=== PATIENT | male | born 1975 | race Caucasian/White ===

== ENCOUNTER 2018-04-01 17:29 | Emergency (ER) | payer OTHER ==
[2018-04-01 17:47] VITALS: BP 132/88
--- NOTE | 2018-04-01 17:55 | UC ---
Cardiac HPI - HPI Summary HPI Summary: 42 yo male presents with headache, spontaneous epistaxis, and elevated BP. He tells me that yesterday he had some tinges of blood when blowing his nose. Today he was hunting and felt it was difficult to concentrate. He had a spontaneous nosebleed that lasted about 20minutes and stopped with direct pressure. Throughout this time he also has a headache and pain behind his left eye. He had another nosebleed later today that lasted 30minutes. He called his PCP to get an appointment and they asked him to check his BP with his at home machine, which he did and found it to be 211/145. His PCP's office recommended her be evaluated today, prompting his visit to the . Currently he still has a mild headache and moderate pain behind his left eye. Denies fever, recent illness, dizziness, vision changes, SOB, chest pain, n/v. - History of Current Complaint Chief Complaint: UCGeneralIllness Stated Complaint: BLOODY NOSE, AND PAIN AROUND EYES Time Seen by Provider: 04/01/18 17:43 Hx Obtained From: Patient Onset/Duration: Sudden Onset Initial Severity: Mild Current Severity: Mild Pain Intensity: 3 - Allergy/Home Medications Allergies/Adverse Reactions: Allergies Allergy/AdvReac Type Severity Reaction Status Date / Time hydroxyzine [From Vistaril] Allergy Anaphylatic Verified 04/01/18 17:43 Shock Home Medications: Home Medications Aspirin/Acetaminophen/Caffeine [Excedrin Migraine Caplet] 1 each PO Q12HR [History Confirmed 04/01/18] Garlic [Garlic Oil] 3,000 mg PO BID 04/01/18 [History Confirmed 04/01/18] [place]-3 Fatty Acids/Fish Oil [Fish Oil 1,000 mg Capsule] 6 each PO DAILY [History Confirmed 04/01/18] PMH/Surg Hx/FS Hx/Imm Hx Endocrine History: Diabetes, Dyslipidemia Cardiovascular History: Hypertension - Surgical History Surgical History: Yes Surgery Procedure, Year, and Place: appendectomy. BULLET REMOVED FROM HAND. L 1/2 testicle removed. vasectomy - Family History Known Family History: Positive: Cardiac Disease - FATHER, MOTHER - Social History Occupation: Employed Full-time Lives: With Family Alcohol Use: None Substance Use Type: Marijuana Substance Use Comment - Amount & Last Used: daily Smoking Status (MU): Light Every Day Tobacco Smoker Type: Cigarettes When Did the Patient Quit Smoking/Using Tobacco: november 2014 Household Exposure Type: Cigarettes Review of Systems All Other Systems Reviewed And Are Negative: Yes Constitutional: Positive: Negative Skin: Positive: Negative Eyes: Positive: Other - Left eye pain ENT: Positive: Epistaxis Respiratory: Positive: Negative Cardiovascular: Positive: Negative Gastrointestinal: Positive: Negative Neurovascular: Positive: Negative Musculoskeletal: Positive: Negative Neurological: Positive: Headache Psychological: Positive: Negative Physical Exam - Summary Physical Exam Summary: GENERAL: NAD. WDWN. No pain distress. SKIN: No rashes, sores, lesions, or open wounds. HEENT: Head: AT/NC Eyes: EOM intact. PERRLA. No nystagmus. Conjunctiva clear without inflammation or discharge. LEFT eye moderate tenderness to light palpation. Ears: Hearing grossly normal. TMs intact, no bulging, erythema, or edema. Nose: Nasal mucosa with dried blood right>left. NTTP maxillary and frontal sinus. Throat: Posterior oropharynx without exudates, erythema, or tonsillar enlargement. Uvula midline. NECK: Supple. Nontender. No lymphadenopathy. CHEST: CTAB. No r/r/w. No accessory muscle use. Breathing comfortably and in no distress. CV: RRR. Without m/r/g. Pulses intact. Cap refill <2seconds NEURO: A&Ox3. 3 word recall, remote, recent memory, ability to follow 2-step directions, and attention intact. CN: II: Peripheral mart intact. Vision normal. III, IV, : EOMI. No nystagmus. PERRLA. V: Sensations intact and symmetric. Opens mouth and clenches teeth. VII: No facial asymmetry. Forehead wrinkles. Grins, shuts eyes, frowns, puffs cheeks. VIII: Hearing intact to finger rub. IX, X: Swallows and coughs. Uvula midline. XI: Shrugs shoulders. Turns head against resistance. XII: No tongue deviation [id number] are intact. Gait with normal base. Normal speech. No facial drooping. PSYCH: Age appropriate behavior. Triage Information Reviewed: Yes Vital Signs: Initial Vital Signs Temp 98.6 F 04/01/18 17:34 Pulse 79 04/01/18 17:34 Resp 18 04/01/18 17:34 BP 132/88 04/01/18 17:34 Pulse Ox 99 04/01/18 17:34 Vital Signs Reviewed: Yes - Assessment/Plan Course Of Treatment: EKbpm NSR with No ST changes as read by Dr. Mclean. Discussed case with Dr. Mclean, whom also interviewed the pt. His vitals are stable currently and his BP is acceptable, but given his elevated BP earlier today and symptoms - advised pt to be further evaluated in the ED. He was agreeable to this and will go be ambulance transfer. Pt left in stable condition via bangs. Report called to Dr. Olmos in the ED. - Clinical Impression Provider Diagnosis: Elevated blood pressure reading, Headache, Eye pain, Epistaxis Discharge - Sign-Out/Discharge Documenting (check all that apply): Patient Departure All imaging exams completed and their final reports reviewed: No Studies - Discharge Plan Condition: Stable Disposition: TRANS HIGHER LVL OF CARE FAC Referrals: Al NETTLES,Laz Gregory [Primary Care Provider] - - Billing Disposition and Condition Condition: STABLE Disposition: Trans Higher Lvl of Care Fac
--- NOTE | 2018-04-01 20:37 | UC ---
- Progress Note Progress Note: I saw the patient along with physician service assistant in the clinic today. After the patient left the emergency department he called me saying he was still having pain. We discussed his pain and he believes it's a sinus infection. I further discussed treatment with antibiotics and he agreed I'm calling in an antibiotic to his pharmacy. Course/Dx - Diagnoses Provider Diagnoses: Elevated blood pressure reading, Headache, Eye pain, Epistaxis Discharge - Sign-Out/Discharge Documenting (check all that apply): Patient Departure All imaging exams completed and their final reports reviewed: No Studies - Discharge Plan Condition: Stable Disposition: TRANS HIGHER LVL OF CARE FAC Prescriptions: Amoxicillin/Clavulanate TAB* [Augmentin TAB 875*] 875 mg PO BID #20 tab Referrals: Al NETTLES,Laz Gregory [Primary Care Provider] - - Billing Disposition and Condition Condition: STABLE Disposition: Trans Higher Lvl of Care Fac
== END 2018-04-01 19:25 | disposition short-term general hospital (02) ==
LOC: UCEAST 17:29
DX: R03.0 Elevated blood-pressure reading, without diagnosis of hypertension (principal); R51 Headache; Z88.8 Allergy status to other drugs, medicaments and biological substances; F17.210 Nicotine dependence, cigarettes, uncomplicated
CPT/HCPCS: 99213; G0463

== ENCOUNTER → 2018-04-01 19:03 | Emergency (ER) | payer OTHER ==
[2018-04-01 19:10] VITALS: BP 154/94
--- NOTE | 2018-04-01 20:03 | ED ---
Throat Pain/Nasal Congestion - HPI Summary HPI Summary: This patient is a 42 year old M brought in by ambulance to [facility] with a chief complaint of nasal pressure that began prior to arrival. The patient rates the pain 10/10 in severity. Symptoms aggravated by nothing. Symptoms alleviated by nothing. Patient reports headache (behind left eye), LUE pain radiating to chest , and epistaxis. Patient states he had a blockage in his heart, and refused treatment for this condition. - History of Current Complaint Chief Complaint: EDGeneral Time Seen by Provider: 04/01/18 19:50 Hx Obtained From: Patient Onset/Duration: Sudden Onset, Lasting Hours, Still Present Severity: Severe Cough: None - Allergies/Home Medications Allergies/Adverse Reactions: Allergies Allergy/AdvReac Type Severity Reaction Status Date / Time hydroxyzine [From Vistaril] Allergy Anaphylatic Verified 04/01/18 17:43 Shock PMH/Surg Hx/FS Hx/Imm Hx Previously Healthy: No Endocrine/Hematology History: Reports: Hx Diabetes - controlled by diet Denies: Hx Thyroid Disease Cardiovascular History: Denies: Hx Hypertension Respiratory History: Reports: Hx Chronic Obstructive Pulmonary Disease (COPD) Denies: Hx Asthma GI History: Reports: Hx Ulcer - Surgical History Surgery Procedure, Year, and Place: appendectomy. BULLET REMOVED FROM HAND. L 1/2 testicle removed. vasectomy Infectious Disease History: No Infectious Disease History: Denies: Hx Clostridium Difficile, Hx Hepatitis, Hx Human Immunodeficiency Virus (HIV), Hx of Known/Suspected MRSA, Hx Shingles, Hx Tuberculosis, Hx Known/ Suspected VRE, Hx Known/Suspected VRSA, History Other Infectious Disease, Traveled Outside the [place] in Last 30 Days - Family History Known Family History: Positive: Cardiac Disease - FATHER, MOTHER - Social History Occupation: Employed Full-time Lives: With Family Alcohol Use: Daily Hx Substance Use: Yes Substance Use Type: Reports: Marijuana Substance Use Comment - Amount & Last Used: daily Hx Tobacco Use: Yes Smoking Status (MU): Light Every Day Tobacco Smoker Review of Systems ENT: Other - Positive sinus pressure Positive: Epistaxis Positive: Other - Positive RUE pain radiating to chest Positive: Headache All Other Systems Reviewed And Are Negative: Yes Physical Exam - Summary Physical Exam Summary: VITAL SIGNS: Reviewed. GENERAL: Patient is a well-developed and nourished male who is lying comfortable in the stretcher. Patient is not in any acute respiratory distress. Pt was uncooperative during exam. I examined him as much as I could. HEAD AND FACE: No signs of trauma. No ecchymosis, hematomas or skull depressions. EYES: PERRLA, EOMI x 2, No injected conjunctiva, no nystagmus. EARS: Hearing grossly intact. MOUTH: Oropharynx within normal limits. NECK: Supple, trachea is midline, no adenopathy, no JVD, neck with full ROM. CHEST: Symmetric, no tenderness at palpation LUNGS: Clear to auscultation bilaterally. No wheezing or crackles. CVS: Regular rate and rhythm, S1 and S2 present, no murmurs or gallops appreciated. ABDOMEN: Soft, non-tender. No signs of distention. No rebound no guarding, and no masses palpated. Bowel sounds are normal. EXTREMITIES: FROM in all major joints, no edema, no cyanosis or clubbing. NEURO: Alert and oriented x 3. No acute neurological deficits. Speech is normal and follows commands. SKIN: Dry and warm Triage Information Reviewed: Yes Vital Signs On Initial Exam: Initial Vitals Temp Pulse Resp BP Pulse Ox 98.2 F 81 18 154/94 96 04/01/18 19:08 04/01/18 19:08 04/01/18 19:08 04/01/18 19:08 04/01/18 19:08 Vital Signs Reviewed: Yes Diagnostics - Vital Signs Vital Signs Temp Pulse Resp BP Pulse Ox 04/01/18 19:08 98.2 F 81 18 154/94 96 - Laboratory Lab Statement: Any lab studies that have been ordered have been reviewed, and results considered in the medical decision making process. - EKG 1931 Cardiac Rate: NL EKG Rhythm: Sinus Rhythm - [address] Segment: Normal Summary of EKG Findings: An EKG taken at 1931 reveals nml sinus rhythm at 73 BPM with left axis deviation and no acute ST changes. EENT Course/Dx - Course Course Of Treatment: This patient is a 42 year old M brought in by ambulance to [facility] with a chief complaint of nasal pressure that began prior to arrival. Physical Exam Findings: Pt was uncooperative during exam. I examined him as much as I could. An EKG taken at 1931 reveals nml sinus rhythm at 73 BPM with left axis deviation and no acute ST changes. Patient eloped. - Diagnoses Provider Diagnoses: Eloped from emergency department Discharge - Sign-Out/Discharge Documenting (check all that apply): Patient Departure - Eloped - Discharge Plan Condition: Stable Disposition: ELOPEMENT Referrals: Al NETTLES,Laz Gregory [Primary Care Provider] - - Attestation Statements Document Initiated by Scribe: Yes Documenting Scribe: Lisbeth Pariis Provider For Whom Scribe is Documenting (Include Credential): Dr. Aryan Amaya MD Scribe Attestation: I, Lisbeth Parisi, scribed for Dr. Aryan Amaya MD on 04/01/18 at 2002. Status of Scribe Document: Ready
== END | disposition left against medical advice (07) ==
LOC: ED 19:03
DX: J34.89 Other specified disorders of nose and nasal sinuses (principal); R07.89 Other chest pain; R51 Headache; Z88.8 Allergy status to other drugs, medicaments and biological substances; F17.200 Nicotine dependence, unspecified, uncomplicated
CPT/HCPCS: 93005; 99282

== ENCOUNTER 2018-10-18 11:35 | Emergency (ER) | payer OTHER ==
[2018-10-18 11:52] VITALS: BP 123/79
--- NOTE | 2018-10-18 12:08 | UC ---
Respiratory Complaint HPI - HPI Summary HPI Summary: 43 y/o male PMHx of COPD presents to the urgent care c/o sinus pressure, nasal congestion for the past 2 week. Symptoms have worsen the past week w/ productive cough, chest congestion. For the past 3 days w/ wheezing, using the neb Tx and Symbicort inhaler w/o any improvement. Pt states chills last night, but no fever. Sinus pain is 4/10. He denies SOB, difficulty breathing, chest pain, CHILEL, abdominal pain, N/V/D. - History of Current Complaint Chief Complaint: UCRespiratory Stated Complaint: SINUS/CHECT CONGESTION Time Seen by Provider: 10/18/18 12:06 Hx Obtained From: Patient Onset/Duration: Gradual Onset, Lasting Weeks - 2 weeks w/ productive cough and yellowish phlegm, Still Present, Worse Since - 3 days w/ wheezing Timing: Intermittent Episodes Severity Initially: Mild Severity Currently: Moderate Pain Intensity: 4 - sinus pain Pain Scale Used: 0-10 Numeric Character: Cough: Productive, Sputum Description: - yellowish Aggravating Factors: Recumbent Position Alleviating Factors: Bronchodilator, OTC Meds Associated Signs And Symptoms: Positive: Chills, Wheezing - x 3 days, URI, Nasal Congestion, Sinus Discomfort. Negative: Dyspnea, Fever, Hemoptysis Related History: Similar Episode/Dx as: - COPD exacerbation - Risk Factors Pulmonary Embolism Risk Factors: Negative Cardiac Risk Factors: Hypertension - diet controlled, Smoking Pseudomonas Risk Factors: Negative Tuberculosis Risk Factors: Negative - Allergies/Home Medications Allergies/Adverse Reactions: Allergies Allergy/AdvReac Type Severity Reaction Status Date / Time hydroxyzine [From Vistaril] Allergy Anaphylatic Verified 10/18/18 11:55 Shock Home Medications: Home Medications Albuterol/Ipratropium NEB.AGUSTIN* [Duoneb (Albuterol 2.5 MG/Ipratropium 0.5 MG)] 1 neb INH Q4H PRN 10/18/18 [History Confirmed 10/18/18] Budesonide/Formote 80/4.5(NF) [Symbicort 80/4.5 (NF)] 1 puff INH BID 10/18/18 [ History Confirmed 10/18/18] PMH/Surg Hx/FS Hx/Imm Hx Previously Healthy: Yes Cardiovascular History: Hypertension Respiratory History: COPD - Surgical History Surgical History: None Surgery Procedure, Year, and Place: appendectomy. BULLET REMOVED FROM HAND. L 1/2 testicle removed. vasectomy - Family History Known Family History: Positive: Cardiac Disease - FATHER, MOTHER, Hypertension, Diabetes - Social History Occupation: Employed Full-time Lives: With Family Alcohol Use: None Substance Use Type: Marijuana Substance Use Comment - Amount & Last Used: daily Smoking Status (MU): Light Every Day Tobacco Smoker When Did the Patient Quit Smoking/Using Tobacco: november 2014 Household Exposure Type: Cigarettes Review of Systems All Other Systems Reviewed And Are Negative: Yes Constitutional: Positive: Chills Skin: Positive: Negative Eyes: Positive: Negative ENT: Positive: Ear Ache - B/L ear pressure, Nasal Discharge - yellowish, Sinus Congestion, Sinus Pain/Tenderness, Other - PND Respiratory: Positive: Cough - productive, Other - wheezing Cardiovascular: Positive: Negative Gastrointestinal: Positive: Negative Genitourinary: Positive: Negative Motor: Positive: Negative Neurovascular: Positive: Negative Musculoskeletal: Positive: Negative Neurological: Positive: Negative Psychological: Positive: Negative Is Patient Immunocompromised?: No Physical Exam - Summary Physical Exam Summary: Vital Signs Reviewed: Yes General: well developed, well nourished male sitting in the examining table w/o any apparent distress Eyes: Positive: Conjunctiva Clear - PERRLA, EOMI, fundi grossly normal ENT: Positive: Normal ENT inspection, Hearing grossly normal, Pharynx normal, Nasal congestion - edematous and erythematous nasal mucosa, Nasal drainage - yellowish drainage, TMs normal. Negative: Tonsillar swelling, Tonsillar exudate Neck: Positive: Supple, Nontender, No Lymphadenopathy Respiratory: no orthopnea or dyspnea. Able to speak in full sentences, no retractions or accessory muscle use, no tripod position, stridor, or head bobbing. Positive breath sounds bilaterally. diffuse scattered wheezing and rhonchi on b/L lungs, no crackles or rales. Cardiovascular: Positive: RRR, No Murmur, Pulses Normal, Brisk Capillary Refill Abdomen Description: Positive: Nontender, No Organomegaly, Soft. Negative: CVA Tenderness (R), CVA Tenderness (L) Bowel Sounds: Positive: Present Musculoskeletal Exam: Normal Musculoskeletal: Positive: Strength Intact, ROM Intact, No Edema Neurological Exam: Normal Psychological Exam: Normal Skin Exam: Normal Triage Information Reviewed: Yes Vital Signs: Initial Vital Signs Temp 98.9 F 06/24/19 11:48 Pulse 96 10/18/18 11:48 Resp 18 10/18/18 11:48 BP 123/79 10/18/18 11:48 Pulse Ox 97 10/18/18 11:48 Respiratory Course/Dx - Course Course Of Treatment: 43 y/o male PMHx of COPD presents to the urgent care c/o sinus pressure, nasal congestion for the past 2 week. Symptoms have worsen the past week w/ productive cough, chest congestion. For the past 3 days w/ wheezing, using the neb Tx and Symbicort inhaler w/o any improvement. Pt states chills last night, but no fever. Sinus pain is 4/10. He denies SOB, difficulty breathing, chest pain, CHILEL, abdominal pain, N/V/D. Hx obtained. Pt is hemodynamically stable, A& OX3, Pt w/ B/L lungs scattered wheezing and rhonchi on examination. O2Sat:97%. Pt w/ PMHX of COPD and everyday smoker. Pt probably w/ a COPD exacerbation due to bronchitis on examination. Chest X-ray ordered: impression: no acute disease observed. Pt given at the clinic Prednisone 60 mg PO and Duoneb treatment. Pt tolerated well medications and her lungs improved. Pt states feeling better. Pt will be tx w/ Rx Doxycycline PO , Prednisone taper dose and advised to continue w/ Neb Tx. Strongly advised to f/u with PCP in 3 days for further management if not improvement. Pt understood and agreed with D/C instructions and left the clinic hemodynamically stable. - Differential Dx/Diagnosis Differential Diagnosis/HQI/PQRI: Asthma, Bronchitis, Exacerbation Of COPD, Influenza, Lower Resp Infection, Sinusitis, Other - pneumonia Provider Diagnosis: COPD with exacerbation, Wheezing Discharge - Sign-Out/Discharge Documenting (check all that apply): Patient Departure - D/C home All imaging exams completed and their final reports reviewed: Yes - Discharge Plan Condition: Stable Disposition: HOME Prescriptions: DOXYcycline CAP(*) [DOXYcycline 100MG CAP(*)] 100 mg PO BID #20 cap predniSONE TAB* [Deltasone 20 MG TAB*] 20 mg PO DAILY #8 tab Patient Education Materials: COPD (Chronic Obstructive Pulmonary Disease) (ED) Referrals: [facility] [Outside] - 3 Days Additional Instructions: 1- Take Prednisone PO taper dose as directed starting tomorrow. First loading dose given today. 2-TAke Doxycycline PO as directed. Please take full course of antibiotic. Take yogurts w/ probiotics or Culturelle to protect your GI ankita 2- Continue using your Duoneb nebulizer treatment to alleviate SOB, and wheezing as directed . Increase fluid intake, rest and eat well. 3- If symptoms do not improve or worsen or your develop SOB with fever and severe wheezing please go immediately to the ER further evaluation and treatment. 4- F/u with your PCP in 3 days for further management on your COPD if not improvement of symptoms. - Billing Disposition and Condition Condition: STABLE Disposition: Home
[2018-10-18] MEDS ORDERED: Albuterol/Ipratropium NEB.SOL* Albuterol 2.5 MG/Ipratropium 0.5 MG 3 ML INH ONE (12:25)
[2018-10-18] MEDS ORDERED: predniSONE TAB* 20 MG PO ONE (12:25)
== END 2018-10-18 13:07 | disposition home or self-care (01) ==
LOC: UCEAST 11:35
DX: J44.1 Chronic obstructive pulmonary disease with (acute) exacerbation (principal); R06.2 Wheezing; I10 Essential (primary) hypertension; F17.210 Nicotine dependence, cigarettes, uncomplicated
CPT/HCPCS: 71046; 99202; A9270-GY; G0463; J7512

== ENCOUNTER 2019-07-30 12:11 | Emergency (ER) | payer OTHER ==
--- NOTE | 2019-07-30 13:02 | UC ---
General HPI - HPI Summary HPI Summary: 44 yo gentleman c/o progressive cough, wheezing / sob x approx 1 1/2 week. + discomfort in L ant chest x 1 and 1/2 weeks. Mr. Holliday reports that this pain also happens in this location when he gets a bad bronchitis or pneumonia. Denies palpitations. Discomfort is constant, not pleuritic. Reports that this is not unusual, and usually resolves with mucinex and vicks after appr 5 dyas. But this is not better, and getting worse. Temp increase 99.5F 6 days ago, but doesn't think since then. scratchy throat. + sinus congestion from cough. He is coughing up thick, dark sputum. Does not think it's bloody. No rash. Some loose stool, but no change from baseline. No melena / brbpr. No urinary c/o's. No extremity swelling / pain. Completed a full course of doxycycline (May 2019) d/t similar sx. - History of Current Complaint Chief Complaint: UCRespiratory Stated Complaint: SHORTNESS OF BREATH,CHEST CONGESTION Time Seen by Provider: 07/30/19 12:23 Hx Obtained From: Patient Pain Intensity: 0 - Allergy/Home Medications Allergies/Adverse Reactions: Allergies Allergy/AdvReac Type Severity Reaction Status Date / Time hydroxyzine [From Vistaril] Allergy Anaphylatic Verified 07/30/19 12:17 Shock Home Medications: Home Medications Garlic [Garlic Oil] 6,000 mg PO BID 04/01/18 [History Confirmed 10/18/18] Albuterol HFA INHALER* [Ventolin HFA Inhaler*] 1 puff INH Q4H PRN 07/30/19 [ History Confirmed 07/30/19] Albuterol HFA INHALER* [Ventolin HFA Inhaler*] 2 puff INH Q4H PRN #1 mdi [Rx] Ciprofloxacin TAB* [Cipro 500 MG TAB*] 500 mg PO BID #20 tab 07/30/19 [Rx] D-Methorphan/PE/Acetaminophen [Day Time Cold-Flu Liquid] 237 ml PO ONCE [History Confirmed 07/30/19] Krill/Om3/Dha/Epa/Om6/Lip/Astx [Krill Oil 1,000 mg Softgel] 2,000 mg PO BID 08/14 [History Confirmed 07/30/19] guaiFENesin [Mucinex] 600 mg PO ONCE 07/30/19 [History Confirmed 07/30/19] predniSONE 10 mg TAB [Deltasone 10 MG TAB*] 10 mg PO DAILY #22 tab 07/30/19 [Rx] PMH/Surg Hx/FS Hx/Imm Hx Previously Healthy: No - see hpi and below - Surgical History Surgical History: Yes Surgery Procedure, Year, and Place: appendectomy. BULLET REMOVED FROM HAND. L 1/2 testicle removed. vasectomy - Family History Known Family History: Positive: Cardiac Disease - FATHER, MOTHER, Hypertension, Diabetes - Social History Alcohol Use: None Substance Use Type: Marijuana Substance Use Comment - Amount & Last Used: medical, daily Smoking Status (MU): Light Every Day Tobacco Smoker Amount Used/How Often: 1.5 PPD Length of Time of Smoking/Using Tobacco: has smoked since childhood When Did the Patient Quit Smoking/Using Tobacco: 2020 Household Exposure Type: Cigarettes Review of Systems All Other Systems Reviewed And Are Negative: Yes Constitutional: Positive: Other - see hpi Skin: Positive: Negative Eyes: Positive: Negative ENT: Positive: Other - see hpi Respiratory: Positive: Cough Cardiovascular: Positive: Other - see hpi Gastrointestinal: Positive: Other - see hpi Genitourinary: Positive: Other - see hpi Motor: Positive: Other - see hpi Neurovascular: Positive: Other - see hpi Musculoskeletal: Positive: Other: - see hpi Neurological/Mental Status: Positive: Negative Psychological: Positive: Negative Is Patient Immunocompromised?: No Physical Exam Triage Information Reviewed: Yes Appearance: Well-Appearing - sitting up, conversing easily, appropriately, in full sentances, Well-Nourished Vital Signs Reviewed: Yes Eye Exam: Normal ENT Exam: Normal - grossly normal, no ear pain c/o Neck exam: Normal Respiratory Exam: Other - + scattered rhonchi all upper and lower chest. + scattered wheeze diffuse. No rtx. No distress. Cardiovascular Exam: Normal Cardiovascular: Positive: RRR, Pulses Normal, Brisk Capillary Refill Musculoskeletal Exam: Normal Musculoskeletal: Positive: Strength Intact, ROM Intact, Other: - no focal unilateral edema Neurological Exam: Normal - grossly nad Psychological Exam: Normal - nad Skin Exam: Normal - no visible or reported rash nondiaphoretic Course/Dx - Course Course Of Treatment: Mr. Holliday carefully considered EKG. But absolutely declines, citing it's always bad and if it's a heart attack, then he's been having a heart attack for over a week. He is aware that undiagnosed cardiac could -> disability or even sudden . He is ok with a CXR, hx pneumonia last year. CXR - see [employer] report for details - Bronchitis and / or inflammatory lung disease D/t lung findings / hx of repeated pneumonia / chronic smoking hx, clinical suspicion is elevated for pneumatic process. As such will rx accordingly. Also will start prednisone (d/w pt, including re covid precautions, but he is having sign wheezing along with hx tobacco, as such, prednisone is indicated). Does not have a nebulizer (used to have one). Will purchase another nebulizer online. He does have nebulizer medication, declines rx for neb albuterol. He would like rx for albuterol inhaler. Aware of the need to self quarantine. He reports that he has been self isolating since July 03. Aware to seek medical attention immediately if worse or new problems. Questions as posed answered to the best of my ability. Influenza a/b negative COVID 19 sent - Diagnoses Provider Diagnosis: Bronchospasm, Bronchitis Discharge ED - Sign-Out/Discharge Documenting (check all that apply): Patient Departure All imaging exams completed and their final reports reviewed: Yes - Discharge Plan Condition: Stable Disposition: HOME Prescriptions: Albuterol HFA INHALER* [Ventolin HFA Inhaler*] 2 puff INH Q4H PRN #1 mdi PRN Reason: Wheezing predniSONE 10 mg TAB [Deltasone 10 MG TAB*] 10 mg PO DAILY #22 tab Patient Education Materials: Acute Bronchitis (ED), Bronchospasm (ED) Referrals: [facility] [Outside] No Primary Care Phys,NOPCP [Primary Care Provider] - Additional Instructions: Blood pressure 139/83. Recommend that this be rechecked if possible within 4 weeks. Please follow up with a primary care physician, when possible. Seek immediate medical attention for worse or new problems. Hydrate. You are being tested for COVID 19, please refer to self quarantine precautions. Please strongly consider tobacco cessation. - Billing Disposition and Condition Condition: STABLE Disposition: Home
[2019-07-30 13:13] VITALS: BP 139/83
[2019-07-30 13:24] LABS: Influenza A Molecular Negative (Negative); Influenza B Molecular Negative (Negative)
== END 2019-07-30 13:52 | disposition home or self-care (01) ==
LOC: UCEAST 12:11
DX: J20.9 Acute bronchitis, unspecified (principal); Z20.828 Contact with and (suspected) exposure to other viral communicable diseases; Z88.8 Allergy status to other drugs, medicaments and biological substances; F17.200 Nicotine dependence, unspecified, uncomplicated
CPT/HCPCS: 71046; 87635; 99213; G0463